=== PATIENT | female | born 1930 | race Caucasian/White ===

== ENCOUNTER 2018-10-15 14:54 | Observation (INO) | payer MEDICARE ==
[2018-10-15 15:39] LABS: #Basophils 0.1 thou/uL (0.0-0.2); #Eosinphils 0.2 thou/uL (0.0-0.7); #Lymphocytes 1.8 thou/uL (1.20-3.40); #Monocytes 0.5 thou/uL (0.11-0.59); #Neutrophils 3.6 thou/uL (1.40-6.50); %Eosinophils 2.8 % (0.0-10.0); %Lymphocytes 29.3 % (21.0-51.0); %Monocytes 7.7 % (0.0-10.0); %Neutrophils 59.3 % (42.0-75.0); Hemoglobin 13.4 g/dL (12.0-16.0); Mean Corpuscular HGB CONC 33.2 g/dL (32.0-36.0); Mean Corpuscular Hemoglobin 30.2 pg (27.0-31.0); Mean Corpuscular Volume 90.8 fL (78.0-98.0); Mean Platelet Volume 6.6 fL (7.4-10.4); Platelet Count 208 thou/uL (130-400); RBC Distribution Width 11.2 % (11.5-14.5); Red Blood Cell (RBC) Count 4.43 mill/uL (4.20-5.40); White Blood Cell (WBC) Count 6.1 thou/uL (4.8-10.8)
[2018-10-15 16:05] LABS: ALT (SGPT) 12 U/L (8-55); AST (SGOT) 18 U/L (5-34); Albumin 3.9 g/dL (3.4-4.8); Alkaline Phosphatase 74 U/L (40-150); Anion Gap 11 mmol/L (10-20); BUN (Urea Nitrogen) 16 mg/dL (9.8-20.1); Bilirubin, Total 0.4 mg/dL (0.2-1.2); Calc. Creatinine Clearance 0 mL/min (70-130); Calcium 9.5 mg/dL (7.8-10.44); Carbon Dioxide 28 mmol/L (23-31); Chloride 103 mmol/L (98-107); Estimated GFR-MDRD 68; Globulin 2.7 g/dL (2.4-3.5); Glucose 104 mg/dL (83-110); Potassium 4.6 mmol/L (3.5-5.1); Protein, Total 6.6 g/dL (6.0-8.3); Sodium 137 mmol/L (136-145)
--- NOTE | 2018-10-15 17:41 | CT ---
CT head noncontrast HISTORY: Syncope. FINDINGS: There is no evidence of acute intracranial hemorrhage or infarct. Moderate chronic ischemic small vessel disease throughout the periventricular white matter. Cavum septum pellucidum. No mass effect or shift of midline structures. Visualized paranasal sinuses remain well aerated. IMPRESSION: No acute intracranial abnormalities are demonstrated.
--- NOTE | 2018-10-15 17:49 | RAD ---
1 VIEW CHEST: Date: 10/15/18 HISTORY: Syncope. COMPARISON: 10/04/08. FINDINGS: Atherosclerosis and slight elongation of the aorta. Normal cardiac silhouette. Pulmonary vessels and hilum are normal. Obscuration of the right hemidiaphragm likely due to right lower lobe infiltrate, a telectasis, or aspiration. Adequate aeration of the upper lungs. No pleural effusion or pneumothorax. No osseous abnormalities. IMPRESSION: Right lower lobe opacity obscuring the right hemidiaphragm due to atelectasis, pneumonia, or aspirati on. POS: OFF
[2018-10-15 18:45] LABS: Bilirubin Negative (Negative); Blood, Urine Small (Negative); Clarity CLOUDY (Clear); Glucose, Urine (Dipstick) Negative (Negative); Leukocyte Moderate (Negative); Nitrite Negative (Negative); Protein, Urine (Dipstick) Negative (Neg-Trace); Specific Gravity, Urine 1.013 (1.002-1.036); Urobilinogen 0.2 mg/dL (0.2-1.0); pH, Urine 5.5 (5.0-9.0)
[2018-10-15 18:47] LABS: Bacteria/HPF None Seen HPF (None Seen); Hyaline Casts/LPF 4-6 HYALINE CAST LPF (0-3 Hyaline); Pathc Cast-AUWi Flag 0.95 (0-2.49); WBC/HPF 21-50 HPF (0-3)
[2018-10-15 18:57] LABS: Yeast-AUWi Flag 108.1 (0-25.0)
[2018-10-15 19:14] LABS: RBC/HPF 0-3 HPF (0-3); Yeast-All Forms Rare HPF (None Seen)
[2018-10-15] MEDS ORDERED: cloNIDine 0.1 MG TAB PO PRN (19:27)
[2018-10-15] MEDS ORDERED: Ondansetron PF 4 MG/2 ML Vial IVP PRN (19:27)
[2018-10-15] MEDS ORDERED: Benzonatate 100 MG CAP PO PRN (19:27)
[2018-10-15] MEDS ORDERED: Nitroglycerin 0.4 MG TAB (25 Tab Bottle) SL PRN (19:27)
[2018-10-15] MEDS ORDERED: Acetaminophen 325 MG TAB PO PRN (19:27)
[2018-10-15] MEDS ORDERED: hydrALAZINE 20 MG/ML VIAL SLOW IVP PRN (19:27)
[2018-10-15] MEDS ORDERED: Calcium Carbonate 500 MG ChewTAB PO PRN (19:27)
[2018-10-15] MEDS ORDERED: Diabetic Tussin 200 MG/10 ML UDCUP PO PRN (19:27)
[2018-10-15] MEDS ORDERED: Senokot S 8.6-50 MG TAB PO PRN ×2 (19:27)
[2018-10-15] MEDS ORDERED: Bisacodyl 5 MG TAB PO PRN (19:27)
[2018-10-15] MEDS ORDERED: Melatonin 3 MG TAB PO PRN (20:06)
[2018-10-15 20:14] LABS: Troponin I Less than 0.010 ng/mL (< 0.028)
[2018-10-15 20:49] VITALS: BMI 32.4
[2018-10-15] MEDS ORDERED: GLUCOSAMINE HCL 500 MG PO SCH (21:00)
--- NOTE | 2018-10-15 21:28 | HP ---
PRIMARY CARE PHYSICIAN: Wander Cook MD CHIEF COMPLAINT: Dizziness and near-syncope. HISTORY OF PRESENTING ILLNESS: Ms. Sears is an 88-year-old very, very pleasant female with past medical history of coronary artery disease status post stenting 8 years ago and ballooning by Dr. Ortiz as well as history of dyslipidemia, diverticulitis, and GERD, who presented to the emergency room with above- mentioned complaints. History is mainly obtained by the patient herself and supplemented by multiple family members present in the room. Electronic medical records have been reviewed. Ms. Sears reports that she is usually very active and independent. She was working in her kitchen this morning and all of the sudden, felt dizzy. She did not pass out. Did not fall down, but had to take support. She was able to walk to the couch and sat down and called her family, who lives close by. When they arrived about 15 minutes later, she was able to stand up and by this time, her symptoms have resolved. She denies any recent illnesses, but she has been exposed to multiple sick people because [facility] the [facility], where her is residing and according to her family, "She is a Hugger." She herself denies any fever, chills, runny nose, or sore throat. She has had no chest pain. She does endorse some shortness of breath, which has been there for few months. She easily get winded just walking around. She is getting poor sleep because she has multiple dogs and does not get enough rest at night. She denies any nausea, vomiting, diarrhea, or abdominal pain. She denies any dysuria, frequency, or urgency. She has no swelling in her legs. No orthopnea or PND. No blood in the stools or urine. Upon presentation to the ER, she was hemodynamically stable with a blood pressure 120/73, pulse of 69, respirations 16, saturating 96% on room air, and afebrile. Physical examination was unremarkable. Her lab work including CBC, serum chemistries, cardiac enzymes, and TSH were within normal limits. Her urinalysis has multiple WBCs, but it most likely is a contaminated sample. Her CT scan of the brain was unremarkable, but the chest x-ray was read as possible right-sided lower lobe opacity and developing pneumonia. Her EKG had some T-wave inversions as well. In the emergency room, she did not receive any specific treatment. An Internal Medicine Team was called to admit her under observation status for workup of her near syncope. Currently, the patient is feeling well and has no complaints. She does endorse difficulty with her directions since when she walks. She lost it off as I usually walk into the joiner and cannot walk in a straight line if I do not use my walker. PAST MEDICAL HISTORY: 1. History of coronary artery disease status post stent and ballooning by Dr. Ortiz about 8 years ago. 2. Dyslipidemia. 3. Diverticulitis. 4. GERD. PAST SURGICAL HISTORY: 1. History of bowel resection and colostomy with reversal. 2. Surgical hernia repair. PSYCHIATRIC HISTORY: Anxiety and depression. SOCIAL HISTORY: No drug, tobacco, or alcohol abuse. She lives alone at home, but her family lives close by. Her son, who is present in the room is a medical power of [place] attorney. He lives in [place]. ALLERGIES: NO KNOWN MEDICATION ALLERGIES. HOME MEDICATIONS: As follows; 1. Ranitidine 150 mg b.i.d. 2. Valsartan 80 mg daily. 3. Duloxetine 60 mg daily. 4. Crestor 20 mg daily. 5. Alprazolam 0.25 mg b.i.d. 6. Vitamin D3 of 2000 units daily. 7. Magnesium 250 mg daily. 8. Aspirin 81 mg daily. 9. Glucosamine 500 b.i.d. 10. Naproxen every 12 hours. CODE STATUS: Full code discussed with the patient at bedside. However, the son reports that she has expressed DNR wishes in the past and he has the paperwork. For the time being, the patient is very specific that she wants to "give it a try." FAMILY HISTORY: No significant family history of premature coronary artery disease or stroke. REVIEW OF SYSTEMS: A 14 point review of system is done it is negative except for those mentioned in the history and physical. LABORATORY DATA: Her lab examination, her CBC is unremarkable. Serum chemistries show troponin less than 0.010 x2 and BNP of 130. TSH normal. Urinalysis has small blood, positive leukocyte esterase, wbc's 21 to 50, but multiple squamous epithelial cells as well. Chest x-ray by my review shows right basilar opacity. CT scan of the brain by my review shows no hemorrhage, mass effect, or acute infarction. A 12-lead EKG by my review shows normal sinus rhythm with T-wave inversion in lead V2, V6, I, and aVL. She has repolarization abnormality. No STEMI. PHYSICAL EXAMINATION: VITAL SIGNS: Most recent vital signs; blood pressure 132/65, pulse is 70, respirations 16, temperature 97.7, and saturating 96% on room air. GENERAL: Lying comfortably in bed. No acute distress. She is awake, alert, and oriented x3. HEENT: Mucous membrane is moist and pink. No oropharyngeal exudate or erythema. Head is normocephalic and atraumatic. Pupils are equal and reactive to light and accommodation. Extraocular movement intact. NECK: Supple without any lymphadenopathy, JVD, or bruit. CHEST: Clear to auscultation without any wheezing, rales, or rhonchi. Rate and rhythm are regular without any murmurs, rubs, or gallops. ABDOMEN: Soft, nontender, and nondistended. Positive bowel sounds. EXTREMITIES: Free of any cyanosis, clubbing, or edema. NEUROLOGIC: Nonfocal. SKIN: Free of any rashes or bruises. Feels warm and dry to touch. PSYCHIATRIC: Normal affect. IMPRESSION AND PLAN: 1. Near syncope, most likely scenario is either inner ear problems or orthostatic hypotension. The patient may also be developing pneumonia as evident in her chest x-ray and her sick contact exposure. We will resuscitate her with gentle IV fluids and admit her to telemetry. We will also rule out cardiac causes. We will perform transthoracic echocardiogram and continued cardiac monitoring on the telemetry unit. Continue to trend serial cardiac enzymes as well. We will also obtain carotid Doppler ultrasound especially given her history of veering to one side when she walks. We will also send for a urine culture and blood culture. Her urine does look dirty, but it might be a contaminated sample, but it might also be a true infection causing her near syncopal symptoms. 2. Pneumonia, right lower lobe. Start empiric antibiotics. Check respiratory viral pathogen panel and the patient has been encouraged to avoid sick people in close proximity. We will follow the results of the blood culture as well. 3. History of coronary artery disease. We will restart her home medications once confirmed. We will restart her on her valsartan and Crestor and aspirin. 4. History of dyslipidemia. The patient will be restarted on her Crestor. 5. History of gastroesophageal reflux disease. Restart her ranitidine. Hold the naproxen. 6. Code status, full code discussed with the patient. 7. Disposition. Ms. Sears is currently being admitted to observation floor for near syncopal episode. She might also possibly has early pneumonia. Further management will depend upon her clinical course. Job ID: [id number] MTDD
[2018-10-15] MEDS: Sodium Chloride 0.9% 1,000 ML IV SCH (21:42)
[2018-10-15] MEDS: Famotidine 20 MG TAB PO SCH (21:59)
[2018-10-15] MEDS: ALPRAZolam 0.25 MG TAB PO SCH (21:59)
[2018-10-15] MEDS: Rosuvastatin 20 MG TAB PO SCH (21:59)
[2018-10-15] MEDS: Magnesium Oxide 250 MG TAB PO SCH (21:59)
[2018-10-15 23:03] LABS: Troponin I 0.013 ng/mL (< 0.028)
[2018-10-16 05:40] LABS: #Basophils 0.1 thou/uL (0.0-0.2); #Eosinphils 0.2 thou/uL (0.0-0.7); #Lymphocytes 1.9 thou/uL (1.20-3.40); #Monocytes 0.7 thou/uL (0.11-0.59); #Neutrophils 3.8 thou/uL (1.40-6.50); %Basophils 1.6 % (0.0-1.0); %Eosinophils 2.7 % (0.0-10.0); %Lymphocytes 28.2 % (21.0-51.0); %Monocytes 9.8 % (0.0-10.0); %Neutrophils 57.8 % (42.0-75.0); Hemoglobin 12.7 g/dL (12.0-16.0); Mean Corpuscular HGB CONC 33.4 g/dL (32.0-36.0); Mean Corpuscular Hemoglobin 31.1 pg (27.0-31.0); Mean Corpuscular Volume 93.1 fL (78.0-98.0); Mean Platelet Volume 6.6 fL (7.4-10.4); Platelet Count 193 thou/uL (130-400); RBC Distribution Width 11.4 % (11.5-14.5); Red Blood Cell (RBC) Count 4.09 mill/uL (4.20-5.40); White Blood Cell (WBC) Count 6.6 thou/uL (4.8-10.8)
[2018-10-16 06:01] LABS: Anion Gap 10 mmol/L (10-20); BUN (Urea Nitrogen) 15 mg/dL (9.8-20.1); Calc. Creatinine Clearance 68 mL/min (70-130); Calcium 9.3 mg/dL (7.8-10.44); Carbon Dioxide 26 mmol/L (23-31); Chloride 106 mmol/L (98-107); Estimated GFR-MDRD 72; Glucose 87 mg/dL (83-110); Sodium 137 mmol/L (136-145)
--- NOTE | 2018-10-16 09:47 | ULT ---
BILATERAL CAROTID DUPLEX ULTRASOUND: HISTORY: Syncope TECHNIQUE: Grayscale, color-flow and spectral Doppler ultrasound imaging of the extracranial carotid artery syst ems and vertebral arteries was performed bilaterally. FINDINGS: Mild atherosclerotic plaque is seen involving proximal right internal carotid artery and distal left common carotid artery. The peak systolic velocity in the right ICA measures 48.8 cm/s. The peak systolic velocity in the ri ght CCA measures 64.3 cm/s. The peak systolic velocity in the left ICA measures 58.4 cm/s. The peak systolic velocity in the l eft CCA measures 69.9 cm/s. The right IC/CC ration is0.76. The left IC/CC ratio is 0.84. Vertebral flow: antegrade, bilaterally. . IMPRESSION: No hemodynamically significant stenosis of Both ICAs.
[2018-10-16] MEDS: Valsartan 80 MG TAB PO SCH (10:30)
[2018-10-16] MEDS: Enoxaparin Sodium 40 MG/0.4 ML SYRINGE SC SCH (10:31)
[2018-10-16] MEDS: Famotidine 20 MG TAB PO SCH ×2 (10:31→20:52)
[2018-10-16] MEDS: ALPRAZolam 0.25 MG TAB PO SCH ×2 (10:31→20:52)
[2018-10-16] MEDS: Aspirin 81 mg Enteric Coated Tablet PO SCH (10:31)
[2018-10-16] MEDS: DULoxetine 60 MG CAP PO SCH (10:31)
--- NOTE | 2018-10-16 16:15 | PDOC.PN ---
- Subjective Encounter Start Date: 10/16/18 Encounter Start Time: 16:13 Subjective: feels better but long comaplaints about hearing sounds in L ear -: feels like "crushed foil".Has seen ENT & was told to not worry about it -: no dizziness/CP/SOB - Objective MAR Reviewed: Yes Vital Signs & Weight: Vital Signs (12 hours) Temp Pulse Resp BP BP BP BP 10/16/18 14:21 151/61 H 106/56 L 153/67 H 10/16/18 12:00 97.2 F L 64 20 148/65 H 10/16/18 11:36 141/65 H 10/16/18 08:00 97.5 F L 65 20 139/81 Pulse Ox 10/16/18 14:21 10/16/18 12:00 97 10/16/18 11:36 10/16/18 08:00 96 Weight Weight 189 lb 3.2 oz I&O: 10/15/18 10/16/18 10/17/18 06:59 06:59 06:59 Intake Total 100 Output Total 1100 Balance -1000 Result Diagrams: 10/16/18 04:59 10/16/18 04:59 Additional Labs: Microbiology 10/16/18 00:30 Nasopharyngeal swab Respiratory Panel (PCR) - Final 10/15/18 20:32 Venous blood - Right Hand Blood Culture - Preliminary Specimen has been received and culture in progress. No Growth to date. 10/15/18 20:31 Venous blood - Left Arm Blood Culture - Preliminary Specimen has been received and culture in progress. No Growth to date. Radiology Reviewed by me: Yes (Carotid-NL) Phys Exam - Physical Examination Constitutional: NAD HEENT: PERRLA, moist MMs, sclera anicteric, oral pharynx no lesions Neck: no nodes, no JVD, supple, full ROM Respiratory: no wheezing, no rales, no rhonchi, clear to auscultation bilateral Cardiovascular: RRR, no significant murmur Gastrointestinal: soft, non-tender, no distention, positive bowel sounds Musculoskeletal: no edema, pulses present Neurological: non-focal, normal sensation, moves all 4 limbs Psychiatric: normal affect, A&O x 3 Skin: no rash Dx/Plan (1) Near syncope Status: Acute (2) Orthostatic hypotension Code(s): I95.1 - ORTHOSTATIC HYPOTENSION Status: Acute (3) PNA (pneumonia) Code(s): J18.9 - PNEUMONIA, UNSPECIFIED ORGANISM Status: Acute (4) CAD (coronary artery disease) Code(s): I25.10 - ATHSCL HEART DISEASE OF [place] CORONARY ARTERY W/O ANG PCTRS Status: Acute (5) Essential (primary) hypertension Code(s): I10 - ESSENTIAL (PRIMARY) HYPERTENSION Status: Acute (6) UTI (urinary tract infection) Status: Suspected - Plan plan discussed w/ family, DVT proph w/SCDs Pt still positive for orthostatic changes afetr IVF.will increase rate & -: monitor.Change Valsartan to hs at home.[place]. -: Awaiting ECHO results to r/o cardiomyopathy and/or valvular issues . -: cont ABx. follow Cx * . Review of Systems - Review of Systems Constitutional: negative: fever, chills, sweats, weakness, malaise, other ENT: Other. negative: Ear Pain, Ear Discharge, Nose Pain, Nose Discharge, Nose Congestion, Mouth Pain, Mouth Swelling, Throat Pain, Throat Swelling Respiratory: negative: Cough, Dry, Shortness of Breath, Hemoptysis, SOB with Excertion, Pleuritic Pain, Sputum, Wheezing Cardiovascular: negative: chest pain, palpitations, orthopnea, paroxysmal nocturnal dyspnea, edema, light headedness, other Gastrointestinal: negative: Nausea, Vomiting, Abdominal Pain, Diarrhea, Constipation, Melena, Hematochezia, Other Genitourinary: negative: Dysuria, Frequency, Incontinence, Hematuria, Retention , Other Musculoskeletal: negative: Neck Pain, Shoulder Pain, Arm Pain, Back Pain, Hand Pain, Leg Pain, Foot Pain, Other Skin: negative: Rash, Lesions, Oliver, Bruising, Other Neurological: negative: Weakness, Numbness, Incoordination, Change in Speech, Confusion, Seizures, Other - Medications/Allergies Allergies/Adverse Reactions: Allergies Allergy/AdvReac Type Severity Reaction Status Date / Time No Known Allergies Allergy Verified 10/15/18 22:45 Medications: Current Medications Acetaminophen (Tylenol) 650 mg PO Q4H PRN PRN Reason: Headache/Fever/Mild Pain (1-3) Alprazolam (Xanax) 0.25 mg PO BID [facility] Last Admin: 10/16/18 10:31 Dose: 0.25 mg Aspirin (Ecotrin) 81 mg PO DAILY [facility] Last Admin: 10/16/18 10:31 Dose: 81 mg Benzonatate (Tessalon) 100 mg PO Q6H PRN PRN Reason: Cough Bisacodyl (Dulcolax) 10 mg PO DAILYPRN PRN PRN Reason: Constipation Calcium Carbonate (Tums) 1,000 mg PO Q4H PRN PRN Reason: Heartburn or Indigestion Cholecalciferol (Vitamin D3) 2,000 units PO [facility] Last Admin: 10/15/18 21:59 Dose: 2,000 units Clonidine (Catapres) 0.1 mg PO Q4H PRN PRN Reason: SBP > 160____ Duloxetine HCl (Cymbalta) 60 mg PO DAILY [facility] Last Admin: 10/16/18 10:31 Dose: 60 mg Enoxaparin Sodium (Lovenox) 40 mg SC 0900 [facility] Last Admin: 10/16/18 10:31 Dose: 40 mg Famotidine (Pepcid) 20 mg PO BID [facility] Last Admin: 10/16/18 10:31 Dose: 20 mg Fluticasone Propionate (Flonase Nasal [place]) 1 gm NASAL DAILY [facility] Guaifenesin (Robitussin Sf) 200 mg PO Q4H PRN PRN Reason: Cough Hydralazine HCl (Apresoline) 10 mg SLOW IVP Q4H PRN PRN Reason: SBP > 180 and HR < 70 Levofloxacin 500 mg/ Device 100 mls @ 100 mls/hr IVPB Q24HR [facility] Last Admin: 10/15/18 21:58 Dose: 100 mls Sodium Chloride (Normal Saline 0.9%) 1,000 mls @ 100 mls/hr IV .Q10H [facility] Magnesium Oxide (Magnesium Oxide) 250 mg PO [facility] Last Admin: 10/15/18 21:59 Dose: 250 mg Melatonin (Melatonin) 3 mg PO HS PRN PRN Reason: Insomnia Nitroglycerin (Nitrostat) 0.4 mg SL Q5MIN PRN PRN Reason: Chest Pain Ondansetron HCl (Zofran) 4 mg IVP Q6H PRN PRN Reason: Nausea/Vomiting Rosuvastatin Calcium (Crestor) 20 mg PO [facility] Last Admin: 10/15/18 21:59 Dose: 20 mg Senna/Docusate Sodium (Senokot S) 2 tab PO BID PRN PRN Reason: Constipation Sodium Chloride (Flush - Normal Saline) 10 ml IVF PRN PRN PRN Reason: Saline Flush Valsartan (Diovan) 80 mg PO [facility] Last Admin: 10/16/18 10:30 Dose: 80 mg
[2018-10-16] MEDS: Sodium Chloride 0.9% 1,000 ML IV SCH ×2 (16:20→18:08)
[2018-10-16] MEDS: Rosuvastatin 20 MG TAB PO SCH (20:52)
[2018-10-16] MEDS: Magnesium Oxide 250 MG TAB PO SCH (20:52)
[2018-10-17] MEDS: Sodium Chloride 0.9% 1,000 ML IV SCH (06:28)
[2018-10-17] MEDS ORDERED: Fluticasone Propionate Nasal Spray 16 gm Bottle NASAL SCH (09:00)
[2018-10-17] MEDS: Aspirin 81 mg Enteric Coated Tablet PO SCH (09:25)
[2018-10-17] MEDS: ALPRAZolam 0.25 MG TAB PO SCH (09:25)
[2018-10-17] MEDS: Famotidine 20 MG TAB PO SCH (09:25)
[2018-10-17] MEDS: Enoxaparin Sodium 40 MG/0.4 ML SYRINGE SC SCH (09:25)
[2018-10-17] MEDS: DULoxetine 60 MG CAP PO SCH (09:25)
[2018-10-17] MEDS: Valsartan 80 MG TAB PO SCH ×2 (09:28→09:51)
[2018-10-17] MEDS ORDERED: Losartan 25 MG TAB PO SCH (11:00)
[2018-10-17 12:29] VITALS: TEMP 97.3
--- NOTE | 2018-10-18 02:10 | DIS ---
DATE OF ADMISSION: 10/15/2018 DATE OF DISCHARGE: 10/17/2018 CONDITION: At the time of discharge, stable and improved. DISCHARGE DISPOSITION: Home. DISCHARGE DIAGNOSES: 1. Near-syncope secondary to orthostatic hypotension. 2. Orthostatic hypotension. 3. Urinary tract infection ruled out. 4. History of essential hypertension. 5. Pneumonia ruled out. 6. Coronary artery disease. DISCHARGE MEDICATIONS: Resume home medications. Please note that the patient does not take valsartan anymore, but takes losartan 50 mg at bedtime. The rest of the home medications as follows: Crestor 20 mg daily, ranitidine 150 mg p.o. daily, naproxen 500 mg p.o. b.i.d. p.r.n., magnesium, glucosamine, cholecalciferol daily, Xanax p.r.n., aspirin 81 mg daily, Cymbalta 60 mg daily. PROCEDURES IN THE HOSPITAL: 1. Carotid Doppler ultrasound which is negative for any hemodynamically significant stenosis. 2. Transthoracic echocardiogram. Diastolic dysfunction. EF 50% to 55%. No valvular abnormalities. 3. CT scan of the brain upon presentation, which does not have any acute abnormalities. HISTORY OF PRESENTING ILLNESS: Ms. Sears is an 88-year-old female with past medical history of hypertension and coronary artery disease, who presented to the emergency room when she had some episodes of dizziness while working in the kitchen. Her initial examination in the emergency room was unremarkable. She had some dirty looking urine, which was likely a contaminated sample and chest x-ray, right lower lobe opacity which is atelectasis versus pneumonia versus aspiration. She was admitted for further evaluation and care. She was hemodynamically stable upon presentation. Please see H and P dictated by myself for further details dated 10/15/2018. HOSPITAL COURSE: The patient had an unremarkable hospital course. Orthostatics were obtained and she was found to be traumatically orthostatic. She was treated with IV fluids with some improvement in her symptoms. YAO hose was provided. Carotid Doppler and ultrasound and echocardiogram were done which were essentially unremarkable for anything acute. She did have some more orthostatic changes this morning, but she is no more symptomatic with that. Lifestyle modification is advised and they were given information about management of orthostatic hypotension at home with exercises and YAO hose. She will change the time of her losartan to take it towards the end of the day to prevent daytime dizziness. She will follow up primary care physician and spot washer, Dr. Ortiz, for further evaluation. So far, she has no other medical reason to stay in the hospital and will be discharged. Her urine culture, blood cultures, and respiratory viral pathogens were negative. Antibiotic ordoñez, she was given 3 days of IV levofloxacin in the hospital and then this will be stopped at the time of discharge, as there is no real indication. She was evaluated by OT and PT and was discharged from their program as she is more than self-sufficient. A walker was arranged for her. She will be discharged home. I have discussed the discharge plan with patient's daughter who lives in [place] over the phone and other daughter who is in the room. They are very apprehensive to take her back home, but I have encouraged them to arrange a care provider for her. I did tell them that she would not need any more hospital stay criteria as her symptoms can be managed at home with above-mentioned plan. She remains high risk for readmission just because her family does not feel safe taking her home. Rehab evaluation was done, but the patient did not meet criteria as she was more than sufficient to take care of herself. She was seen and examined prior to discharge. PHYSICAL EXAMINATION: VITAL SIGNS: This morning, vital signs temperature 97.3, pulse of 62, respirations 16, saturating 96% on room air, blood pressure 175/83. GENERAL: No acute distress. Awake, alert, and oriented x3. CHEST: Clear to auscultation bilaterally. HEART: Rate rhythm is regular. EXTREMITIES: Free of any cyanosis, clubbing, or edema. Job ID: [id number]
[2018-10-18 07:12] VITALS: BP 186/77
== END 2018-10-17 15:07 | disposition home health service (06) ==
LOC: ERS 14:54 → 2SW 19:11
PROVIDERS: ADMIT Internal Medicine; ATTEND Internal Medicine
DX: I95.1 Orthostatic hypotension (principal); I25.10 Atherosclerotic heart disease of native coronary artery without angina pectoris; E78.5 Hyperlipidemia, unspecified; K21.9 Gastro-esophageal reflux disease without esophagitis; F41.9 Anxiety disorder, unspecified; F32.9 Major depressive disorder, single episode, unspecified; Z79.82 Long term (current) use of aspirin; Z79.899 Other long term (current) drug therapy; Z95.5 Presence of coronary angioplasty implant and graft; Z90.49 Acquired absence of other specified parts of digestive tract
CPT/HCPCS: 70450; 71045; 80048; 83880; 84484 ×2; 85025; 87040; 87086; 87633; 87798 ×2; 93005; 93306; 93880; 96361 ×4; 96365; 96366; 96372 ×2; 97116; 97139 ×3; 99285; G0378 ×2; 36415; 80053; 81003; 81015; 84443; 96360; J1650; J1956

== ENCOUNTER 2018-11-10 14:42 | Emergency (ER) | payer MEDICARE ==
--- NOTE | 2018-11-10 15:25 | RAD ---
2 views of the right humerus INDICATION: History of fall with right arm pain COMPARISON: None. FINDINGS: No acute fracture or subluxation is evident. Mild enthesopathic changes seen off the latera l epicondyle as well as the greater tuberosity of the humerus. There is mild right AC joint osteoarthrosis. IMPRESSION: No acute osseous abnormality.
--- NOTE | 2018-11-10 15:26 | RAD ---
XR Knee Rt 4 View STANDARD: 11/10/2018 2:51 PM CLINICAL INDICATION: Fall with right knee pain COMPARISON: None. FINDINGS: Bones: There is moderate right knee osteophytosis. No acute fracture is evident. Joints: There is moderate medial femorotibial joint compartmental narrowing.. Soft Tissue: Within normal limits. IMPRESSION: Moderate osteoarthrosis of the right knee. No acute fracture or subluxation..
== END 2018-11-10 16:09 | disposition home or self-care (01) ==
LOC: ERS 14:42
DX: M25.561 Pain in right knee (principal); M79.621 Pain in right upper arm; E78.5 Hyperlipidemia, unspecified; F41.9 Anxiety disorder, unspecified; F32.9 Major depressive disorder, single episode, unspecified; K21.9 Gastro-esophageal reflux disease without esophagitis; Z79.899 Other long term (current) drug therapy; W01.0XXA Fall on same level from slipping, tripping and stumbling without subsequent striking against object, initial encounter

== ENCOUNTER 2019-02-07 17:47 | Emergency (ER) | payer MEDICARE ==
--- NOTE | 2019-02-07 18:34 | RAD ---
RIGHT WRIST THREE VIEWS: History: Injury to right wrist with pain. FINDINGS: There is a fracture of the distal radius at the region of the radial styloid with extension to the ar ticular surface. No significant displacement. Degenerative changes at the first carpal metacarpal joint. Carpals appear intact. IMPRESSION: Fracture of distal radius. POS: AGW
== END 2019-02-07 19:40 ==
LOC: ERS 17:47
DX: S52.511A Displaced fracture of right radial styloid process, initial encounter for closed fracture (principal); I25.10 Atherosclerotic heart disease of native coronary artery without angina pectoris; K21.9 Gastro-esophageal reflux disease without esophagitis; E78.5 Hyperlipidemia, unspecified; F41.9 Anxiety disorder, unspecified; F32.9 Major depressive disorder, single episode, unspecified; Z79.899 Other long term (current) drug therapy; Z79.82 Long term (current) use of aspirin; W01.0XXA Fall on same level from slipping, tripping and stumbling without subsequent striking against object, initial encounter
CPT/HCPCS: 29125